=== PATIENT | male | born 1940 | race Native Hawaiian/Other Pacific Islander ===

== ENCOUNTER 2016-10-28 13:56 | Emergency (ER) | payer OTHER ==
[~2016-10-28] VITALS: Ht 175.3 cm; Wt 114.3 kg
[~2016-10-28 13:56] MED LIST: ASPIRIN325 M1 PO; GABA300C2 PO; LISI20TA11 PO; METO50TA27 PO; NIASPAN500 MG PO; RANO500T PO; SIMV20TA2 PO
[2016-10-28 15:28] VITALS: BP 125/80; TEMP 98.1
== END 2016-10-28 15:35 | disposition home or self-care (01) ==
LOC: ED 13:56
DX: M10.9 Gout, unspecified (principal)
CPT/HCPCS: 99281

== ENCOUNTER 2016-11-04 07:25 | Emergency (ER) | payer OTHER ==
[~2016-11-04] VITALS: Ht 175.3 cm; Wt 114.3 kg
[2016-11-04 07:37] VITALS: BP 210/96; TEMP 98.2
[2016-11-04 08:26] LABS: PLATELET COUNT 224 K/uL (142-355)
[2016-11-04 08:34] LABS: POTASSIUM 4.2 mmol/L (3.6-5.2)
[2016-11-04] MEDS ORDERED: ALLO100T22 PO (09:01)
[2016-11-04] MEDS ORDERED: INDO25CA21 PO (09:01)
[2016-11-04] MEDS ORDERED: COLC0.6T6 PO (09:01)
== END 2016-11-04 09:13 | disposition home or self-care (01) ==
LOC: ED 07:25
DX: M10.9 Gout, unspecified (principal)
CPT/HCPCS: 80053; 84550; 85027; 85651; 96372; 99283; J1885

== ENCOUNTER 2017-04-27 10:10 | Emergency (ER) | payer OTHER ==
[~2017-04-27] VITALS: Ht 175.3 cm; Wt 114.3 kg
[~2017-04-27 10:10] MED LIST changes: +ALLO100T22 PO; +COLC0.6T6 PO; +INDO25CA21 PO
[2017-04-27 10:24] VITALS: TEMP 98.5
[2017-04-27 10:45] VITALS: BP 142/72
== END 2017-04-27 10:50 | disposition home or self-care (01) ==
LOC: ED 10:10
DX: M10.9 Gout, unspecified (principal)
CPT/HCPCS: 99282; J1885

== ENCOUNTER 2017-06-09 18:45 | Emergency (ER) | payer OTHER ==
[~2017-06-09] VITALS: Ht 175.3 cm; Wt 114.8 kg
[2017-06-09 20:04] LABS: PLATELET COUNT 201 K/uL (142-355)
[2017-06-09 21:07] VITALS: BP 143/75; TEMP 98.1
== END 2017-06-09 21:09 | disposition home or self-care (01) ==
LOC: ED 18:45
DX: M10.9 Gout, unspecified (principal); M25.572 Pain in left ankle and joints of left foot; M25.571 Pain in right ankle and joints of right foot
CPT/HCPCS: 36415; 84550; 85027; 96372; 99283; J1885

== ENCOUNTER 2017-07-06 03:40 | Emergency (ER) | payer OTHER ==
[~2017-07-06] VITALS: Ht 175.3 cm; Wt 114.3 kg
[2017-07-06 04:41] VITALS: BP 144/76; TEMP 97.6
== END 2017-07-06 04:42 | disposition home or self-care (01) ==
LOC: ED 03:40
DX: M10.9 Gout, unspecified (principal)
CPT/HCPCS: 99282; J1100

== ENCOUNTER 2017-07-20 19:40 | Emergency (ER) | payer OTHER ==
[~2017-07-20] VITALS: Ht 180.3 cm; Wt 114.8 kg
[2017-07-20 23:35] VITALS: BP 165/76; TEMP 98.3
== END 2017-07-20 23:41 | disposition home or self-care (01) ==
LOC: ED 19:40
DX: G45.9 Transient cerebral ischemic attack, unspecified (principal)
CPT/HCPCS: 99283

== ENCOUNTER 2017-08-23 21:00 | Emergency (ER) | payer OTHER ==
[~2017-08-23] VITALS: Ht 175.3 cm; Wt 114.8 kg
[2017-08-23 22:15] VITALS: BP 189/96; TEMP 97.9
== END 2017-08-23 22:16 | disposition home or self-care (01) ==
LOC: ED 21:00
DX: M10.9 Gout, unspecified (principal); T15.81XA Foreign body in other and multiple parts of external eye, right eye, initial encounter; G62.89 Other specified polyneuropathies
CPT/HCPCS: 96372; 99283; J1885

== ENCOUNTER 2017-09-01 04:05 | Emergency (ER) | payer OTHER ==
[~2017-09-01] VITALS: Ht 172.7 cm; Wt 116.1 kg
[2017-09-01 04:17] VITALS: BP 162/73; TEMP 98.3
== END 2017-09-01 04:49 | disposition home or self-care (01) ==
LOC: ED 04:05
DX: M25.571 Pain in right ankle and joints of right foot (principal)
CPT/HCPCS: 99281

== ENCOUNTER 2017-10-12 17:33 | Emergency (ER) | payer OTHER ==
[~2017-10-12] VITALS: Ht 175.3 cm; Wt 119.3 kg
[2017-10-12 17:49] VITALS: BP 198/99; TEMP 98.1
== END 2017-10-12 19:45 | disposition left against medical advice (07) ==
LOC: ED 17:33
DX: R11.2 Nausea with vomiting, unspecified (principal); R19.7 Diarrhea, unspecified; Z79.899 Other long term (current) drug therapy; Z51.81 Encounter for therapeutic drug level monitoring
CPT/HCPCS: 81000; 87086; 87088; 94664; 96372; 99283; J2405

== ENCOUNTER 2017-12-03 19:59 | Emergency (ER) | payer OTHER ==
[~2017-12-03] VITALS: Ht 175.3 cm; Wt 114.8 kg
[2017-12-03 21:04] LABS: PLATELET COUNT 156 K/uL (142-355)
[2017-12-03 21:10] LABS: POTASSIUM 3.9 mmol/L (3.6-5.2)
[2017-12-03 22:30] VITALS: BP 141/81; TEMP 99.5
== END 2017-12-03 22:30 | disposition home or self-care (01) ==
LOC: ED 19:59
DX: M10.9 Gout, unspecified (principal)
CPT/HCPCS: 80053; 81000; 84550; 85027; 99283; J1885; J2920

== ENCOUNTER 2017-12-23 16:35 | Emergency (ER) | payer OTHER ==
[~2017-12-23] VITALS: Ht 172.7 cm; Wt 118.8 kg
[2017-12-23 16:45] VITALS: BP 144/71; TEMP 98.6
[2017-12-23 17:40] LABS: PLATELET COUNT 277 K/uL (142-355)
== END 2017-12-23 19:00 | disposition home or self-care (01) ==
LOC: ED 16:35
DX: N30.00 Acute cystitis without hematuria (principal)
CPT/HCPCS: 81000; 85027; 96372; 99283; J0696

== ENCOUNTER 2018-02-07 20:54 | Emergency (ER) | payer OTHER ==
[~2018-02-07] VITALS: Ht 175.3 cm; Wt 114.8 kg
[2018-02-07 21:05] VITALS: BP 217/98; TEMP 99.8
[2018-02-07 22:05] LABS: PLATELET COUNT 160 K/uL (142-355)
[2018-02-07 22:14] LABS: POTASSIUM 3.9 mmol/L (3.6-5.2)
== END 2018-02-07 22:45 | disposition home or self-care (01) ==
LOC: ED 20:54
DX: S00.86XA Insect bite (nonvenomous) of other part of head, initial encounter (principal); R11.0 Nausea; W57.XXXA Bitten or stung by nonvenomous insect and other nonvenomous arthropods, initial encounter; Y92.89 Other specified places as the place of occurrence of the external cause
CPT/HCPCS: 36415; 80053; 85027; 96374; 96375; 99283; J2405

== ENCOUNTER 2018-02-19 21:21 | Emergency (ER) | payer OTHER ==
[~2018-02-19] VITALS: Ht 149.9 cm; Wt 113.9 kg
[2018-02-19 22:43] LABS: PLATELET COUNT 186 K/uL (142-355)
[2018-02-19 22:52] LABS: POTASSIUM 4.6 mmol/L (3.6-5.2)
[2018-02-19 23:25] VITALS: BP 182/89; TEMP 98.1
== END 2018-02-19 23:25 | disposition home or self-care (01) ==
LOC: ED 21:21
PROVIDERS: Specialist
DX: N39.0 Urinary tract infection, site not specified (principal)
CPT/HCPCS: 36415; 80048; 81000; 85027; 87040; 87077; 87086; 87088; 87186; 99283

== ENCOUNTER 2018-09-19 14:09 | Emergency (ER) | payer OTHER ==
[~2018-09-19] VITALS: Ht 167.6 cm; Wt 114.3 kg
[2018-09-19 15:16] VITALS: BP 167/83; TEMP 98.7
== END 2018-09-19 15:38 | disposition home or self-care (01) ==
LOC: ED 14:09
DX: N39.0 Urinary tract infection, site not specified (principal)
CPT/HCPCS: 96372; 99282; J0696

== ENCOUNTER 2018-12-12 10:25 | Emergency (ER) | payer OTHER ==
[~2018-12-12] VITALS: Ht 190.5 cm; Wt 114.3 kg
[2018-12-12 10:40] VITALS: BP 123/72; TEMP 98.1
== END 2018-12-12 14:15 | disposition home or self-care (01) ==
LOC: ED 10:25
DX: T78.3XXA Angioneurotic edema, initial encounter (principal)
CPT/HCPCS: 96374; 96375; 99284; J1100; J1200

== ENCOUNTER 2018-12-22 02:14 | Emergency (ER) | payer OTHER ==
[~2018-12-22] VITALS: Ht 190.5 cm; Wt 114.3 kg
[2018-12-22 03:50] VITALS: BP 138/65; TEMP 98.2
== END 2018-12-22 03:51 | disposition home or self-care (01) ==
LOC: ED 02:14
DX: N34.2 Other urethritis (principal); R30.0 Dysuria
CPT/HCPCS: 81000; 99283

== ENCOUNTER 2018-12-30 18:53 | Emergency (ER) | payer OTHER ==
[~2018-12-30] VITALS: Ht 190.5 cm; Wt 114.3 kg
[2018-12-30 19:52] LABS: PLATELET COUNT 242 K/uL (142-355)
[2018-12-30 19:54] LABS: POTASSIUM 5.2 mmol/L (3.6-5.2)
[2018-12-30 20:45] VITALS: BP 241/148; TEMP 98.6
== END 2018-12-30 20:46 | disposition home or self-care (01) ==
LOC: ED 18:53
PROVIDERS: Emergency Medicine
DX: N39.0 Urinary tract infection, site not specified (principal)
CPT/HCPCS: 36415; 80053; 81000; 85027; 99283

== ENCOUNTER 2019-01-24 15:18 | Emergency (ER) | payer OTHER ==
[~2019-01-24] VITALS: Ht 190.5 cm; Wt 114.3 kg
[2019-01-24 15:28] VITALS: TEMP 97.7
[2019-01-24 17:33] VITALS: BP 155/78
== END 2019-01-24 17:33 | disposition home or self-care (01) ==
LOC: ED 15:18
DX: M10.9 Gout, unspecified (principal)
CPT/HCPCS: 81000; 96372; 99283; J1885

== ENCOUNTER 2019-03-06 14:14 | Emergency (ER) | payer OTHER ==
[~2019-03-06] VITALS: Ht 190.5 cm; Wt 114.3 kg
[2019-03-06 15:01] VITALS: TEMP 97.7
[2019-03-06 16:41] LABS: PLATELET COUNT 194 K/uL (142-355)
[2019-03-06 16:52] LABS: POTASSIUM 4.6 mmol/L (3.6-5.2)
[2019-03-06 17:49] VITALS: BP 167/73
== END 2019-03-06 17:49 | disposition home or self-care (01) ==
LOC: ED 14:14
PROVIDERS: Emergency Medicine
DX: M10.9 Gout, unspecified (principal)
CPT/HCPCS: 36415; 80053; 84550; 85027; 96372; 99283; J1885

== ENCOUNTER 2019-05-09 18:26 | Emergency (ER) | payer OTHER ==
[~2019-05-09] VITALS: Ht 180.3 cm; Wt 103.0 kg
[2019-05-09 18:37] VITALS: TEMP 97.9
[2019-05-09 19:54] VITALS: BP 220/94
== END 2019-05-09 19:58 | disposition home or self-care (01) ==
LOC: ED 18:26
DX: N39.0 Urinary tract infection, site not specified (principal); I10 Essential (primary) hypertension; F17.210 Nicotine dependence, cigarettes, uncomplicated
CPT/HCPCS: 81000; 87086; 87088; 96372; 99283

== ENCOUNTER 2019-07-10 20:20 | Emergency (ER) | payer OTHER ==
[~2019-07-10] VITALS: Ht 172.7 cm; Wt 109.8 kg
[2019-07-10 23:15] VITALS: BP 155/72; TEMP 98.3
== END 2019-07-10 23:15 | disposition home or self-care (01) ==
LOC: ED 20:20
DX: N39.0 Urinary tract infection, site not specified (principal)
CPT/HCPCS: 81000; 87077; 87086; 87088; 87186; 96372; 99283; J0696

== ENCOUNTER 2019-08-18 21:20 | Emergency (ER) | payer OTHER ==
[~2019-08-18] VITALS: Ht 172.7 cm; Wt 109.8 kg
[2019-08-18 21:25] VITALS: BP 208/94; TEMP 97.5
[2019-08-18 22:03] LABS: PLATELET COUNT 190 K/uL (142-355)
[2019-08-18 22:19] LABS: POTASSIUM 5.3 mmol/L (3.6-5.2)
== END 2019-08-18 23:48 | disposition still patient (30) ==
LOC: ED 21:20
PROVIDERS: Emergency Medicine
DX: R79.89 Other specified abnormal findings of blood chemistry (principal); N18.9 Chronic kidney disease, unspecified
CPT/HCPCS: 80053; 82550; 83880; 84484; 85027; 85379; 85610; 85730; 93005; 99284